=== PATIENT | female | born 1985 | race Caucasian/White ===

== ENCOUNTER 2016-09-06 20:40 | Emergency (ER) | payer BC ==
[~2016-09-06] VITALS: Ht 154.9 cm; Wt 75.5 kg
[~2016-09-06 20:40] MED LIST: NO MEDS.
[2016-09-06 20:43] VITALS: Ht 154.9 cm; Wt 75.5 kg
[2016-09-06] MEDS ORDERED: ONDANSETRON (ODT) 4 MG TAB ODT STA (21:27)
[2016-09-06] MEDS ORDERED: HYDROmorphONE 1 MG/ML SYG IM STA (21:27)
[2016-09-06] MEDS ORDERED: KETOROLAC 60 MG INJ IM STA (21:27)
[2016-09-06] MEDS ORDERED: PENICILLIN G BENZ 1.2 MIL UNIT SYG IM ONE (21:30)
[2016-09-06] MEDS ORDERED: AZIT250T94 PO (21:56)
[2016-09-06] MEDS ORDERED: IBUP800T25 PO (21:56)
[2016-09-06] MEDS ORDERED: HYDR-902 PO (21:56)
--- NOTE | 2016-09-06 22:03 | ERD ---
ER Documentation Chief Complaint Date/Time DATE: 09/06/16 TIME: 22:00 Chief Complaint THROAT PAIN, DIFFICULTY SWALLOWING X 1 WEEK, DENIES SOB HPI This a 31-year-old female complains of 1 week of left ear pain and she developed a fever 2 days ago with sore throat. She is difficult time swallowing due to pain but she can tolerate solids and liquids and has no trouble breathing. She is a fever of 103 today. No headache no dysuria no diarrhea but she had 2 episodes of nausea and vomiting. No photophobia no stiff neck no voice changes ROS All systems reviewed and are negative except as per history of present illness. Medications Home Meds Active Scripts Azithromycin* (Zithromax*) 250 Mg Tablet, 250 MG PO .ZPACK DIRECTED, #6 TAB TAKE 500 MG (2 TABS) THE FIRST DAY THEN 250 MG (1 TAB) DAYS 2-5 Prov:MARGARET CAVAZOS DO 09/06/16 Hydrocodone/Acetaminophen ([place] 10-325 Tablet) 1 Each Tablet, 1 TAB PO Q6H Y for PAIN, #20 TAB Prov:MARGARET CAVAZOS DO 09/06/16 Ibuprofen* (Motrin*) 800 Mg Tab, 800 MG PO Q6H Y for PAIN AND OR ELEVATED TEMP, #30 TAB Prov:MARGARET CAVAZOS DO 09/06/16 Reported Medications [No Meds.] No Conflict Check 04/27/13 Allergies Allergies: Coded Allergies: No Known Allergy (Verified , 04/27/13) PMhx/Soc History of Surgery: Yes (ERCP) Anesthesia Reaction: No Hx Neurological Disorder: No Hx Respiratory Disorders: No Hx Cardiac Disorders: No Hx Psychiatric Problems: No Hx Miscellaneous Medical Probl: No Hx Alcohol Use: No Hx Substance Use: No Hx Tobacco Use: No Smoking Status: Never smoker FmHx Family History: No coronary disease Physical Exam Vitals Vital Signs Date Time Temp Pulse Resp B/P Pulse Ox O2 Delivery O2 Flow Rate FiO2 09/06/16 20:43 103.2 127 20 148/81 97 Physical Exam Const: Well-developed, well-nourished Head: Atraumatic, normocephalic Eyes: Normal Conjunctiva, PERRLA, EOMI, normal sclera, no nystagmus ENT: Normal External Ears, Nose and Mouth, moist mucus membranes, oropharynx is bilateral tonsillar and peritonsillar erythema with bilateral exudate, the left eardrum has loss of landmarks with erythema no perforation. Neck: Full range of motion. No meningismus, no lymphadenopathy. Resp: Clear to auscultation bilaterally, no wheezing, rhonchi, rales Cardio: Regular rate and rhythm, no murmurs, S1 S2 present Abd: Soft, non tender x 4, non distended. Normal bowel sounds, no guarding or rebound, no pulsitile abdominal masses or bruits Skin: No petechiae or rashes, no ecchymosis , no maculopapular rash Back: No midline or flank tenderness Ext: No cyanosis, or edema, FROM x 4, normal inspection, neurovascularly intact x 4 Neur: Awake and alert, STR 5/5 x 4, sensation intact x 4, no focal findings, cerebellum intact Psych: Normal Mood and Affect Results 24 hrs Current Medications Medications (Trade) Dose Ordered Sig/Jayshree Route PRN Reason Start Time Stop Time Status Last Admin Dose Admin Penicillin G Benzathine (Bicillin La) 1,200,000 units ONCE ONCE IM 09/06/16 21:30 09/06/16 21:31 DC Hydromorphone HCl (Dilaudid) 1 mg ONCE STAT IM 09/06/16 21:27 09/06/16 21:28 DC Ketorolac Tromethamine (Toradol) 60 mg ONCE STAT IM 09/06/16 21:27 09/06/16 21:28 DC Ondansetron HCl (Zofran Odt) 4 mg ONCE STAT ODT 09/06/16 21:27 09/06/16 21:28 DC Procedures/MDM Patient received Bicillin 1.2 million units LA intramuscular, Toradol, Dilaudid and Zofran Discharge with Zithromax [place] and Motrin Departure Diagnosis: Primary Impression: Pharyngitis Pharyngitis/tonsillitis etiology: unspecified etiology Qualified Code: J02.9 - Pharyngitis, unspecified etiology Additional Impression: Otitis media Otitis media type: suppurative Laterality: left Chronicity: acute Recurrence: not specified as recurrent Spontaneous tympanic membrane rupture: without spontaneous rupture Qualified Code: H66.002 - Acute suppurative otitis media of left ear without spontaneous rupture of tympanic membrane, recurrence not specified Condition: Stable Patient Instructions: Otitis Media, Abx Tx (Adult), Pharyngitis, Strep ( Presumed) MARGARET CAVAZOS DO September 06, 2016 22:03
[2016-09-06 22:15] VITALS: RESP 18
[2016-09-06] MEDS ORDERED: SOD CHLORIDE 0.9% 1,000 ML IV ONE (22:30)
[2016-09-06 22:50] VITALS: PULSE 100; TEMP 100.2
[2016-09-06] MEDS ORDERED: ACETAMINOPHEN 500 MG TAB PO STA (23:07)
== END 2016-09-06 23:19 | disposition home or self-care (01) ==
LOC: FTE 20:40
DX: J02.9 Acute pharyngitis, unspecified (principal); H66.002 Acute suppurative otitis media without spontaneous rupture of ear drum, left ear; R11.2 Nausea with vomiting, unspecified
CPT/HCPCS: 96372; J0561; J1170; J1885; J7030; Z7502; Z7610

== ENCOUNTER 2017-11-11 06:41 | Emergency (ER) | END 2017-11-11 07:49 | disposition home or self-care (01) ==